=== PATIENT | male | born 1970 | race Caucasian/White ===

== ENCOUNTER 2017-03-12 17:32 | Emergency (ER) | payer BC ==
[~2017-03-12] VITALS: Ht 190.5 cm; Wt 90.7 kg
== END 2017-03-12 18:59 | disposition home or self-care (01) ==
LOC: ED 17:32
DX: S90.111A Contusion of right great toe without damage to nail, initial encounter (principal); S90.121A Contusion of right lesser toe(s) without damage to nail, initial encounter; W20.8XXA Other cause of strike by thrown, projected or falling object, initial encounter
CPT/HCPCS: 73630; 99283

== ENCOUNTER 2021-05-06 10:26 | Emergency (ER) | payer BC ==
[~2021-05-06] VITALS: Ht 190.5 cm; Wt 90.7 kg
== END 2021-05-06 14:10 | disposition home or self-care (01) ==
LOC: ED 10:26
DX: U07.1 COVID-19 (principal); Z23 Encounter for immunization
CPT/HCPCS: 99283-25; A9270; M0245

== ENCOUNTER 2024-03-11 07:52 | Day surgery (SDC) | payer BC ==
[2024-03-06 09:38] VITALS: BP 121/73
[~2024-03-11] VITALS: Ht 190.5 cm; Wt 90.9 kg
[~2024-03-11 07:52] MED LIST: CEFAZOLIN SODIUM 2 GM/20 ML SYR IV SCH; HEParin SOD (PORCINE) 5,000 UNIT/0.5 ML SYR SUB-Q SCH; IBLOOD GLUCOSE TEST STRIP 1 EA TEST VI PRN; LACTATED RINGER'S 1,000 ML IV SCH; LIDOCAINE HCL 1% 5 ML SDV INJ ONE
[2024-03-11] MEDS ORDERED: FAMOTIDINE 20 MG/ 2 ML VIAL ONE (08:01)
[2024-03-11] MEDS ORDERED: propofoL 200 MG/20 ML VIAL ONE (08:01)
[2024-03-11] MEDS ORDERED: ondansetron HCL 4 MG/2 ML VIAL ONE (08:01)
[2024-03-11] MEDS ORDERED: KETOROLAC TROMETHAMINE 30 MG/ML VIAL ONE (08:01)
[2024-03-11] MEDS ORDERED: LACTATED RINGER'S 1,000 ML IV ONE (08:01)
[2024-03-11] MEDS ORDERED: fentaNYL citrate 100 MCG/2 ML VIAL ONE (08:01)
[2024-03-11] MEDS ORDERED: METOCLOPRAMIDE HCL 10 MG/2 ML SDV ONE (08:01)
[2024-03-11] MEDS ORDERED: DEXAMETHASONE SOD PHOS 4 MG/ML VIAL ONE (08:01)
[2024-03-11] MEDS ORDERED: MIDAZOLAM HCL 2 MG/2 ML VIAL ONE (08:02)
[2024-03-11 08:25] VITALS: BP 136/82
[2024-03-11] MEDS ORDERED: ondansetron HCL 4 MG/2 ML VIAL IV PRN (08:30)
[2024-03-11] MEDS ORDERED: droPERidol 5 MG/2 ML VIAL IV PRN (08:30)
[2024-03-11] MEDS ORDERED: IBLOOD GLUCOSE TEST STRIP 1 EA TEST VI PRN (08:30)
[2024-03-11] MEDS ORDERED: NALOXONE HCL 0.4 MG SYR IV PRN ×2 (08:30→11:30)
[2024-03-11] MEDS ORDERED: fentaNYL citrate 50 MCG/ML SDV IV PRN (08:30)
[2024-03-11] MEDS ORDERED: METOCLOPRAMIDE HCL 10 MG/2 ML SDV IV PRN (08:30)
[2024-03-11] MEDS ORDERED: PROCHLORPERAZINE EDISYLATE 10 MG/2 ML VIAL IV PRN (08:30)
[2024-03-11] MEDS ORDERED: MORPHINE SULFATE 10 MG/ML VIAL IV PRN (08:30)
[2024-03-11] MEDS ORDERED: SEVOFLURANE 250 ML BTL INH ONE (09:04)
--- NOTE | 2024-03-11 11:16 | NUR ---
03/11/24 1116 Sheets,Nini 1107 PT ARRIVED TO PACU WITH ORAL AIRWAY AND 8L VIA MASK. RESP EVEN AND UNLABORED.
[2024-03-11] MEDS ORDERED: IBUPROFEN600 MG PO (11:29)
[2024-03-11] MEDS ORDERED: OXYCODON-ACETA1 EAC2 PO (11:29)
[2024-03-11] MEDS ORDERED: ACETAMINOPHEN500 MG PO (11:29)
[2024-03-11] MEDS ORDERED: IBUPROFEN 600 MG TAB PO PRN (11:30)
[2024-03-11] MEDS ORDERED: LACTATED RINGER'S 1,000 ML IV SCH (11:30)
[2024-03-11] MEDS ORDERED: OXYCODONE/APAP 7.5/325 TAB PO PRN (11:30)
[2024-03-11] MEDS ORDERED: ACETAMINOPHEN 500 MG TAB PO PRN (11:30)
[2024-03-11 11:59] VITALS: BP 123/72
--- NOTE | 2024-03-11 12:09 | NUR ---
1200: PATIENT BACK IN DAY SURGERY ROOM FROM PACU. RATES PAIN 2/10 IN LEFT GROIN. VS CHECKED. LEFT GROIN DRESSING WITH SCANT AMOUNT OF RED DRAINAGE. IV SITE WNL. GIVEN ICE WATER. SCDs ON. CALL LIGHT WITHIN REACH. AT BEDSIDE.
--- NOTE | 2024-03-11 12:32 | NUR ---
CHECKED PATIENT. PATIENT STATES DOING WELL. NO NEEDS AT THIS TIME. CALL LIGHT WTIHIN REACH. AT BEDSIDE.
[2024-03-11 12:50] VITALS: BP 121/73
--- NOTE | 2024-03-11 13:02 | NUR ---
1250: VS CHECKED. TOLERATING WATER. GIVEN CHOCOLATE PUDDING TO EAT. NO OTHER NEEDS AT THIS TIME. CALL LIGHT WITHIN REACH. AT BEDSIDE.
[2024-03-11 13:52] VITALS: BP 120/70
--- NOTE | 2024-03-11 14:31 | NUR ---
1350 PT USED CALL LIGHT TO ALERT RN THAT PT NEEDS TO URINATE. HOURLY VITALS TAKEN. PT ABLE TO AMBULATE TO BATHROOM AND VOID 450 MLS OF CLEAR YELLOW URINE. 1400 PT ABLE TO AMBULATE BACK TO ROOM, PT GETTING DRESSED. SPOUSE AT BED SIDE. 1405 DISCHARGE INFORMATION GONE OVER WITH SPOUSE AT BEDSIDE. NO QUESTIONS AT THIS TIME FROM PT OR FAMILY. 1410 PT DISCHARGED FROM DAY SURGERY VIA WHEELCHAIR, PT AWAKE AND ORIENTED. PT WHEELED OUT TO THE FRONT OF THE HOSPITAL TO PT'S SPOUSE'S CAR.
--- NOTE | 2024-03-11 14:34 | OR ---
[facility] [address], [place] [address] Signed DATE OF OPERATION: 03/11/2024 SURGEON: Binh Benitez MD PREOPERATIVE DIAGNOSIS: Left inguinal hernia. POSTOPERATIVE DIAGNOSES: 1. Left indirect inguinal hernia with incarcerated tinea of sigmoid with mummified portion of tinea epiploica. 2. Left inguinal hernia repair including excision of hernia sac and mummified tinea epiploica. 3. Excision of indirect hernia sac and closure of floor without implantation of Prolene mesh (Bassini repair). ANESTHESIA: General LMA; Binh Brown CRNA and local 10 mL of 0.25% Marcaine with epinephrine. INDICATION: This 53-year-old white man is a patient of Dr. Stanislav Dowling DO of [place], [place]. The patient lives in [place]. The patient has noted a bulge and increasing pain in the left groin for several years. He is otherwise very healthy in every way. He works for [employer] service and lives in [place] and is but has no children. He is admitted at this time to undergo repair of the left inguinal hernia. He understands the risk of bleeding, infection, recurrence and so on. FINDINGS: An indirect sac was noted and a dense nodule was noted at the apex of the hernia sac. 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 Operation consisted of excision of the hernia sac and high ligation of it as well as excision of the infarcted tinea epiploica. The floor was in reasonably good condition and did not require implantation of mesh. A Bassini type repair was undertaken of the floor including interrupted 0 silk sutures approximating the tendon of the transversus abdominis to the shelving edge of Poupart's ligament. Cord structures were preserved. There were no complications. PROCEDURE IN DETAIL: The patient was brought to the operating room, given a general LMA type anesthetic. Preoperative antibiotic Ancef was given. Sequential compression device stockings were Electronically Signed By: BINH BENITEZ MD 03/11/24 1434 PATIENT NAME: BRAYAN SANTANA OPERATIVE REPORT DATE OF : 66 REPORT #: [id number] PHYSICIAN: BINH BENITEZ MD PCP: JENNIFER ARRIAGA MD REPORT IS CONFIDENTIAL AND NOT TO BE RELEASED WITHOUT AUTHORIZATION [facility] [address], [place] [address] Signed used. The lower abdomen was clipped and prepared with a chlorhexidine solution and draped sterilely. An incision was made along the line of skin tension cephalad to the left pubic tubercle. Dissection was carried through the subcutaneous tissue with electrocautery and blunt dissection. External oblique was incised along its fibers revealing the underlying cord structures which were edematous and inflamed. The cord was freed from the external oblique more fully in external oblique, reflected medially and laterally and secured with hemostats. The cord was mobilized from the floor of the inguinal canal with all due care using blunt electrocautery dissection. Ultimately, the cord was fully mobilized and encircled with a [place] drain. Examination of the floor showed it to be largely intact with no defect to be considered a direct hernia. The bulky cord structures were then dissected transversely using electrocautery freeing the cremasteric muscle fibers, ultimately identifying an indirect hernia sac. A dense hard nodule approximately 1.5 cm was noted at the apex of the hernia sac. The hernia sac was dissected free from the cord structures meticulously and once completely isolated from the cord structures, opened. Once opened, one could see the hard nodule was actually that of the apex of the teniae epiploica. This was secured with a hemostat, divided and specimen passed as mummified tinea epiploica. The hernia sac was more fully freed, internally inspected showing no other sign of problem. The neck of the hernia sac was secured with two separate interrupted 2-0 silk sutures and redundant hernia sac amputated and passed for Pathology. Consideration was made for implantation of Prolene mesh in the floor of the inguinal canal, however, the tissue appeared to be tsai and strong and disrupting the fascia transversalis simply to implant mesh was deemed mettlesome and counterproductive. The floor was repaired however with interrupted 0 silk sutures securing the tendon of the transversus abdominis to the shelving edge of Poupart's ligament. There was enough space along the internal ring for the cord to pass through without obstruction. 10 mL of 0.25% Marcaine with epinephrine was injected locally. The cord was placed in the canal and the external oblique reapproximated with running 2-0 Vicryl suture. Marco layer was reapproximated with interrupted 2-0 Vicryl and skin closed with running subcuticular 3-0 Vicryl. Steri-Strips were applied as was an Acticoat dressing. The patient was ultimately extubated and transferred to the recovery room in good condition having suffered no complication. Sponge, needle, and instrument counts reported as correct x3. Binh Benitez MD Electronically Signed By: BINH BENITEZ MD 03/11/24 1434 PATIENT NAME: BRAYAN SANTANA OPERATIVE REPORT DATE OF : 66 REPORT #: [id number] PHYSICIAN: BINH BENITEZ MD PCP: JENNIFER ARRIAGA MD REPORT IS CONFIDENTIAL AND NOT TO BE RELEASED WITHOUT AUTHORIZATION [facility] [address] [facility] [place], [place] [address] Signed /EVELYNE /[id number] cc: Stanislav Dowling DO Copies: CASANDRA DOWLING DO ~ Electronically Signed By: BINH BENITEZ MD 03/11/24 1434 PATIENT NAME: BRAYAN SANTANA OPERATIVE REPORT DATE OF : 66 REPORT #: [id number] PHYSICIAN: BINH BENITEZ MD PCP: JENNIFER ARRIAGA MD REPORT IS CONFIDENTIAL AND NOT TO BE RELEASED WITHOUT AUTHORIZATION
--- NOTE | 2024-03-17 22:40 | PATH ---
[facility] [address] [place], [place] [address] Signed SPECIMEN(S): A TINEA EPIPLOICA SPECIMEN(S): B LEFT INGUINAL HERNIA SAC SPECIMEN SOURCE: A. TINEA EPIPLOICA B. LEFT INGUINAL HERNIA SAC CLINICAL HISTORY: Left inguinal hernia FINAL PATHOLOGIC DIAGNOSIS: A. Tinea epiploica: - Circumscribed fat necrosis with histiocytes and vascular congestion, consistent with features seen in appendix epiploica. B. Hernia sac, left inguinal, excision: - Hernia sac. COMMENT: The specimen consists of benign fibrovascular tissue. There are changes compatible with a hernia sac. TWK MICROSCOPIC EXAMINATION: Histologic sections of all submitted blocks are examined by light microscopy. These findings, together with the gross examination, support the pathologic diagnosis. GROSS DESCRIPTION: A. The specimen, labeled and designated "Butch, R, tinea epiploica," is received in formalin and consists of single fragment yellow 10 soft tissue measuring 1.5 x 1.4 x 1.0 cm. The specimen entirely inked blue and is sectioned to reveal yellow-montero cut surfaces consistent with possible fat necrosis. [employer]electric Plant [employer] sections submitted in a single cassette. B. The specimen, labeled and designated "Butch, R, left inguinal hernia sac," is received in formalin and consists of single fragment bluepurple membranous tissue measuring 4.7 x 3.2 x 0.7 cm. The outer surface predominantly smooth with few adhesions. The specimen is sectioned to reveal pink-clark smooth inner lining. Hydroelectric Plant Operator sections submitted in a single cassette. MISSY (under the direct supervision of a pathologist) PATIENT NAME: BRAYAN SANTANA PATHOLOGY DATE OF : 66 REPORT #: [id number] PHYSICIAN: MAGNO CRANDALL PCP: JENNIFER ARRIAGA MD REPORT IS CONFIDENTIAL AND NOT TO BE RELEASED WITHOUT AUTHORIZATION [facility] [address] [place], [place] [address] Signed The Gross Description was prepared using a voice recognition system. The report was reviewed for accuracy; however, sound-alike word errors, addition and/or deletions may occur. If there is any question about this report, please contact Client Services. ADDITIONAL NOTES: Immunohistochemical and/or in situ hybridization studies if performed in this case included appropriate positive controls that reacted as expected. This test was developed and its performance characteristics determined by [facility]. It has not been cleared or approved by the U.S. Food and Drug Administration. The FDA has determined that such clearance or approval is not necessary. This test is used for clinical purposes. It should not be regarded as investigational or for research. [facility] is certified under the Clinical Laboratory Improvement Amendments of 1988 (CLIA) as qualified to perform high complexity clinical laboratory testing. PERFORMING LABORATORY: Technical component was performed by [facility], [address] [place] [id number] (CLIA# [id number]). Professional interpretation was performed by [facility], [facility], 1st Floor [address] [address] (CLIA#: [id number]). Diagnostician: Osito Rosas MD Pathologist Electronically Signed 03/17/2024 Copies: ~ PATIENT NAME: BRAYAN SANTANA PATHOLOGY DATE OF : 66 REPORT #: [id number] PHYSICIAN: MAGNO PATHOLOGY PCP: JENNIFER ARRIAGA MD REPORT IS CONFIDENTIAL AND NOT TO BE RELEASED WITHOUT AUTHORIZATION
== END 2024-03-11 14:10 | disposition home or self-care (01) ==
LOC: DS 07:52
PROVIDERS: ATTEND Surgery
PROC: 0YQ60ZZ Repair Left Inguinal Region, Open Approach (ICD-10-PCS; principal; 2024-03-11 09:30)
DX: K40.30 Unilateral inguinal hernia, with obstruction, without gangrene, not specified as recurrent (principal)
CPT/HCPCS: 00830; J0690; J1100; J1644; J1885; J2250; J2405; J2704; J2765; J3010; J7121